=== PATIENT | male | born 2000 | race Caucasian/White ===

== ENCOUNTER 2021-03-05 16:00 | Emergency (ER) | payer OTHER ==
[~2021-03-05] VITALS: Ht 185.4 cm; Wt 104.3 kg
== END 2021-03-05 18:10 | disposition home or self-care (01) ==
LOC: ED 16:00
DX: S63.501A Unspecified sprain of right wrist, initial encounter (principal); S60.221A Contusion of right hand, initial encounter; Z98.890 Other specified postprocedural states; X50.0XXA Overexertion from strenuous movement or load, initial encounter; Y93.89 Activity, other specified; Y92.89 Other specified places as the place of occurrence of the external cause; Y99.8 Other external cause status